=== PATIENT | male | born 1970 | race Caucasian/White ===

== ENCOUNTER 2022-03-08 10:24 | Day surgery (SDC) | payer OTHER ==
[~2022-03-08] VITALS: Ht 170.2 cm; Wt 95.3 kg
[2022-03-08] MEDS ORDERED: fentaNYL citrate 0.05 MG/ML VIAL ONE (13:05)
[2022-03-08] MEDS ORDERED: LIDOCAINE 2% 100 MG/5 ML UJET TP ONE (13:06)
[2022-03-08] MEDS ORDERED: fentaNYL citrate 0.05 MG/ML VIAL IVP ONE (14:05)
== END 2022-03-08 14:27 | disposition home or self-care (01) ==
LOC: MOR 10:24 → MMU 10:24 → MOR 14:27
PROVIDERS: ATTEND Internal Medicine Gastroenterology
DX: Z12.11 Encounter for screening for malignant neoplasm of colon (principal); K63.5 Polyp of colon; E78.00 Pure hypercholesterolemia, unspecified; Z20.822 Contact with and (suspected) exposure to COVID-19; Z79.899 Other long term (current) drug therapy
CPT/HCPCS: 45385; 87426; J3010